=== PATIENT | female | born 1945 | race Two or more races ===

== ENCOUNTER 2017-02-19 08:26 | Outpatient (CLI) | payer OTHER | END 2017-02-19 08:29 | disposition home or self-care (01) | LOC: LAB 08:26 | DX: C50.211 Malignant neoplasm of upper-inner quadrant of right female breast (principal) ==

== ENCOUNTER → 2017-06-14 | Day surgery (SDC) | payer OTHER ==
[~2017-06-14] MED LIST: CENTRUM SILVER1 EAC2 PO; CLARITIN10 M2 PO; FLONASE16 GM; MECLIZINE PO; VASOTEC10 MG PO; VITAMIN C500 M6 PO; ZANTAC300 MG PO; ZOFRAN ODT8 MG PO
== END | disposition home or self-care (01) ==
LOC: CIR.AMB 06:05
DX: C50.211 Malignant neoplasm of upper-inner quadrant of right female breast (principal)

== ENCOUNTER 2018-05-07 09:48 | Outpatient (CLI) | payer OTHER | END 2018-05-07 10:03 | disposition home or self-care (01) | LOC: MAMO-SONO 09:48 | DX: Z12.31 Encounter for screening mammogram for malignant neoplasm of breast (principal); Z87.898 Personal history of other specified conditions; C50.911 Malignant neoplasm of unspecified site of right female breast; C50.912 Malignant neoplasm of unspecified site of left female breast ==

== ENCOUNTER 2020-01-21 11:06 | Outpatient (CLI) | payer OTHER | END 2020-01-21 11:11 | disposition home or self-care (01) | LOC: NUCLEAR 11:06 | PROVIDERS: ATTEND General Practice | DX: M81.0 Age-related osteoporosis without current pathological fracture (principal); Z68.21 Body mass index [BMI] 21.0-21.9, adult ==

== ENCOUNTER 2020-01-21 12:38 | Outpatient (CLI) | payer OTHER | END 2020-01-21 12:52 | disposition home or self-care (01) | LOC: MAMO-SONO 12:38 | PROVIDERS: ATTEND Internal Medicine | DX: D24.2 Benign neoplasm of left breast (principal); N60.02 Solitary cyst of left breast; C50.211 Malignant neoplasm of upper-inner quadrant of right female breast; Z51.11 Encounter for antineoplastic chemotherapy ==

== ENCOUNTER 2021-05-31 08:37 | Outpatient (CLI) | payer OTHER | END 2021-05-31 08:38 | disposition home or self-care (01) | LOC: LAB 08:37 | PROVIDERS: ATTEND Internal Medicine | DX: C50.211 Malignant neoplasm of upper-inner quadrant of right female breast (principal) ==

== ENCOUNTER → 2021-05-31 | Outpatient (CLI) | payer OTHER | END | disposition home or self-care (01) | LOC: MAMO-SONO | PROVIDERS: ATTEND Internal Medicine | DX: M25.559 Pain in unspecified hip (principal); J40 Bronchitis, not specified as acute or chronic; I10 Essential (primary) hypertension; N64.4 Mastodynia; C50.211 Malignant neoplasm of upper-inner quadrant of right female breast ==

== ENCOUNTER 2022-09-24 08:23 | Outpatient (CLI) | payer OTHER | END 2022-09-24 08:30 | disposition home or self-care (01) | LOC: SONOGRAMA 08:23 | DX: N64.4 Mastodynia (principal) ==

== ENCOUNTER 2023-11-19 12:00 | Emergency (ER) | payer OTHER ==
[~2023-11-19] VITALS: Ht 160 cm; Wt 49.9 kg
[2023-11-19] MEDS ORDERED: MEDI-MECLIZINE25 MG (13:08)
[2023-11-19] MEDS ORDERED: PEPCID AC20 MG (13:09)
[2023-11-19] MEDS ORDERED: IBANDRONATE SO150 MG PO (13:09)
[2023-11-19] MEDS ORDERED: PROTONIX40 M1 PO (13:10)
[2023-11-19] MEDS ORDERED: MELOXICAM15 MG PO (13:10)
== END 2023-11-19 14:26 | disposition home or self-care (01) ==
LOC: ER 12:01
DX: S61.051A Open bite of right thumb without damage to nail, initial encounter (principal); W55.01XA Bitten by cat, initial encounter; Y93.89 Activity, other specified; Y92.89 Other specified places as the place of occurrence of the external cause; Z85.3 Personal history of malignant neoplasm of breast

== ENCOUNTER 2024-10-26 08:08 | Outpatient (CLI) | payer OTHER ==
[~2024-10-26 08:08] MED LIST changes: +IBANDRONATE SO150 MG PO; +MEDI-MECLIZINE25 MG; +MELOXICAM15 MG PO; +PEPCID AC20 MG; +PROTONIX40 M1 PO
== END 2024-10-26 08:16 | disposition home or self-care (01) ==
LOC: SONOGRAMA 08:08
DX: N20.1 Calculus of ureter (principal)